=== PATIENT | male | born 1975 | race Caucasian/White ===

== ENCOUNTER 2017-05-05 11:10 | Emergency (ER) | payer MEDICAID ==
[~2017-05-05] VITALS: Ht 167.6 cm; Wt 63.5 kg
--- NOTE | 2017-05-05 11:10 | NUR ---
at bedside assessing patient.
--- NOTE | 2017-05-05 11:31 | NUR ---
PT IS UNABLE TO REMEMBER NAMES OF MEDICATIONS HE TAKES AT THE PRESENT TIME.
--- NOTE | 2017-05-05 11:34 | NUR ---
A call done to transfer [facility] by rosalio Zapata. awaiting call back
--- NOTE | 2017-05-05 11:37 | NUR ---
Hr. 85, 167/120. pain 0/10
[2017-05-05] MEDS ORDERED: ASPIRIN 325 MG TABLET ONE (11:40)
[2017-05-05] MEDS ORDERED: NITROGLYCERIN OINT 1 GM PACKET TP ONE ×2 (11:40→11:45)
--- NOTE | 2017-05-05 11:40 | NUR ---
DR LUCERO FROM [facility] SPOKE TO OLGA TOMAS.
[2017-05-05] MEDS ORDERED: ASPIRIN 325 MG TABLET PO ONE (11:45)
[2017-05-05 11:48] LABS: EOSINOPHILS % (AUTO) 0.1 % (0.0-7.0); WHITE BLOOD COUNT (AUTO) 10.5 K/uL (3.6-10.2)
--- NOTE | 2017-05-05 11:48 | NUR ---
PAGED [facility].
[2017-05-05 11:51] LABS: CREATININE 0.8 mg/dL (0.6-1.3)
--- NOTE | 2017-05-05 12:00 | NUR ---
HR 92, oxygen saturation of 97% 168/113. RR 16
[2017-05-05 12:02] LABS: BILIRUBIN,DIRECT 0.1 mg/dL (0.0-0.2); BILIRUBIN,TOTAL 0.8 mg/dL (0.2-1.0); TOTAL PROTEIN, SERUM 7.9 g/dL (6.4-8.2)
--- NOTE | 2017-05-05 12:04 | NUR ---
DENNISE Joseph on the phone with [facility] as requested by . Addendum: 05/05/17 at 1216 by SHELIA Jerry called . Ref #[id number]. aware of transfer status. A 2nd call to [facility] done by dennise Zapata.
--- NOTE | 2017-05-05 12:05 | NUR ---
Dr. Woodson informed of troponing level.
[2017-05-05] MEDS ORDERED: METOPROLOL TARTRATE 5 MG/5 ML VIAL IVP ONE ×2 (12:15→12:24)
[2017-05-05] MEDS ORDERED: ENOXAPARIN SODIUM 30 MG/0.3 ML DISP.SYRIN SUBCUT ONE (12:15)
--- NOTE | 2017-05-05 12:21 | NUR ---
HR. 72, 97% on 2 LNC. 169/113.
[2017-05-05] MEDS ORDERED: ENOXAPARIN SODIUM 80 MG/0.8 ML DISP.SYRIN SQ ONE (12:24)
[2017-05-05 12:26] LABS: BASOPHILS % (AUTO) 0.4 % (0.0-2.0); HEMOGLOBIN 16.9 g/dL (12.5-16.3); LYMPHOCYTES # (AUTO) 2.8 K/uL (20.0-40.0); LYMPHOCYTES % (AUTO) 26.3 % (20.5-51.5); MEAN CORPUSCULAR HEMOGLOBIN 29.7 uug (23.8-33.4); MEAN CORPUSCULAR HGB CONC 36 g/dL (32.5-36.3); MEAN CORPUSCULAR VOLUME 83.4 fL (73.0-96.2); MONOCYTES # (AUTO) 0.5 K/uL (2.0-10.0); MONOCYTES % (AUTO) 4.6 % (0.0-11.0); NEUTROPHILS # (AUTO) 7.2 K/uL (1.8-8.9); NEUTROPHILS % (AUTO) 68.6 % (38.5-71.5); PLATELET COUNT (AUTO) 321 K/uL (152-348)
[2017-05-05 12:27] LABS: HEMATOCRIT 47.4 % (36.7-47.1); RED BLOOD CELL COUNT(AUTO) 5.69 MIL/uL (4.06-5.63)
--- NOTE | 2017-05-05 12:36 | NUR ---
A call to [facility] and spoke with Alek from [facility] complete report given, and required information faxed as requested at [phone] awaing call back with update.
--- NOTE | 2017-05-05 12:37 | NUR ---
[facility] UNABLE TO TAKE CALL SAID "IM AT A CODE" CALL BACK.
--- NOTE | 2017-05-05 12:39 | NUR ---
SPOKE WITH OLGA COLE. UNABLE TO TAKE CALL SAID [employer] BUSINESS ANALYST AT A CODE CALL BACK.
--- NOTE | 2017-05-05 12:45 | NUR ---
A call back from [facility]. patient will transfer to this facility under Dr. Kennedy with auto design checker Nabil. Dr. Woodson aware. awaiting for [facility] transfer ambulance.
[2017-05-05] MEDS ORDERED: MORPHINE SULFATE 4 MG/1 ML DISP.SYRIN IV ONE (13:15)
[2017-05-05] MEDS ORDERED: ONDANSETRON IV *ER 4 MG/2 ML VIAL IV ONE (13:15)
--- NOTE | 2017-05-05 13:15 | NUR ---
[facility] team in for transfer to [place] report given to DENNISE Gaston. Patient left room medicated with 5/10 chest pain. vitals signs as follow. HR, 69, rr,18, 99% saturation on 2 liter nasal canula. 135/105. at bedside and to accompany pt. during transport.
[2017-05-05 13:27] VITALS: BP 135/105
[2017-05-05] MEDS ORDERED: MORPHINE SULFATE 4 MG/1 ML DISP.SYRIN ONE (13:33)
[2017-05-05] MEDS ORDERED: ONDANSETRON 4 MG/2 ML VIAL ONE (13:34)
== END 2017-05-05 13:30 | disposition short-term general hospital (02) ==
LOC: ER 11:10
DX: I21.4 Non-ST elevation (NSTEMI) myocardial infarction (principal); E11.9 Type 2 diabetes mellitus without complications
CPT/HCPCS: 36415; 70030-TC; 71045; 85025; 85730; 93005; A4663; J1650; J2270; J2405; J3490; J7030; J7050